=== PATIENT | female | born 1965 | race Caucasian/White ===

== ENCOUNTER → 2016-10-05 | Outpatient (CLI) | payer BC ==
--- NOTE | 2016-10-05 15:25 | XR ---
EXAMINATION TYPE: XR lumbosacral spine min 4V DATE OF EXAM ORDERED: 10/05/2016 3:13 PM HISTORY: M54.17 radiculopathy. COMPARISON: None. FINDINGS: Vertebral body height and alignment are maintained. There is no spondylolysis or spondylol isthesis. No fractures are seen. The disc spaces are reasonably well-maintained. The facets are unrem arkable. The pedicles are intact. IMPRESSION: NORMAL LUMBAR SPINE.
--- NOTE | 2016-10-05 15:27 | XR ---
EXAMINATION TYPE: XR Hip Bilateral and AP pelvis DATE OF EXAM ORDERED: 10/05/2016 3:13 PM HISTORY: G89.29 radiculopathy. COMPARISON: None. FINDINGS: Osseous structures about the pelvis are unremarkable. The joints are well maintained. No a cute osseous lesion is seen. IMPRESSION: NORMAL STUDY.
== END | disposition home or self-care (01) ==
LOC: RADXRMAIN 14:33
PROVIDERS: ATTEND Chiropractor
DX: M54.17 Radiculopathy, lumbosacral region (principal); G89.29 Other chronic pain
CPT/HCPCS: 72110; 73521

== ENCOUNTER → 2022-01-01 | Outpatient (CLI) | payer OTHER ==
--- NOTE | 2022-01-01 11:21 | XR ---
EXAMINATION TYPE: XR forearm RT DATE OF EXAM: 01/01/2022 COMPARISON: NONE HISTORY: Pain Two views of the forearm demonstrate that the osseous structures appear to be intact and the joint sp aces appear to be preserved. There is no acute fracture or dislocation. IMPRESSION: 1. No acute fracture or dislocation
--- NOTE | 2022-01-01 11:22 | XR ---
EXAM TYPE: LUMBAR SPINE X RAY SERIES COMPARISON: NONE HISTORY: Pain TECHNIQUE: two views are submitted. FINDINGS: Alignment is anatomic. The pedicles are intact. The transverse processes are intact. There is no s pondylolisthesis. Spurring of L4 anteriorly. 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 IMPRESSION: 1. No acute process.
--- NOTE | 2022-01-01 11:25 | XR ---
EXAMINATION TYPE: XR elbow complete RT DATE OF EXAM: 01/01/2022 COMPARISON: NONE HISTORY: Pain FINDINGS: Three views of the elbow demonstrate posterior and anterior fat pad displacement with pathologic join t effusion. There is a fracture involving the proximal aspect radial head with cortical step off is n oted beneath the. Findings suspicious for fracture. IMPRESSION: 1. Pathologic joint effusion with findings suspicious for fracture involving the proximal margin of t he radius with mild displacement.
--- NOTE | 2022-01-01 11:44 | XR ---
EXAMINATION TYPE: XR sacrum coccyx, XR pelvis AP view DATE OF EXAM: 01/01/2022 COMPARISON: X-ray dated 10/05/2016 INDICATION: Fall and pain TECHNIQUE: AP view of the pelvis with AP and lateral views of the sacrum and coccyx. FINDINGS: No definite acute sacral, coccygeal or pelvic bone fracture identified. A subtle nondisplaced fractur e cannot be excluded by this x-ray. Mild degenerative changes of the sacroiliac joints. Further imaging can be considered if clinically required. IMPRESSION: As above.
== END | disposition home or self-care (01) ==
LOC: RADXRMAIN 10:15
PROVIDERS: ATTEND Emergency Medicine
DX: S50.11XA Contusion of right forearm, initial encounter (principal); S50.01XA Contusion of right elbow, initial encounter; S30.0XXA Contusion of lower back and pelvis, initial encounter; M53.3 Sacrococcygeal disorders, not elsewhere classified
CPT/HCPCS: 72100; 72170; 72220